=== PATIENT | female | born 1960 | race Caucasian/White ===

== ENCOUNTER 2019-01-24 18:57 | Emergency (ER) | payer MEDICAID ==
[~2019-01-24] VITALS: Ht 160 cm; Wt 68.0 kg
[2019-01-24 19:05] VITALS: Ht 160 cm; Wt 68.0 kg
[2019-01-24 21:03] VITALS: BP 163/109
== END 2019-01-24 21:01 | disposition home or self-care (01) ==
LOC: ED 18:57
DX: S16.1XXA Strain of muscle, fascia and tendon at neck level, initial encounter (principal); S39.012A Strain of muscle, fascia and tendon of lower back, initial encounter; R51 Headache; I10 Essential (primary) hypertension; E03.9 Hypothyroidism, unspecified; Z88.5 Allergy status to narcotic agent; Z98.890 Other specified postprocedural states; V48.5XXA Car driver injured in noncollision transport accident in traffic accident, initial encounter; Y93.I9 Activity, other involving external motion; Y92.488 Other paved roadways as the place of occurrence of the external cause; Y99.8 Other external cause status
CPT/HCPCS: J1885

== ENCOUNTER 2020-12-02 09:49 | Emergency (ER) | payer MEDICAID ==
[~2020-12-02] VITALS: Ht 160 cm; Wt 68.0 kg
[2020-12-02 10:02] VITALS: Ht 160 cm; Wt 68.0 kg
[2020-12-02 11:18] LABS: microscopic required? YES; urine erythrocyte TRACE (NEGATIVE)
[2020-12-02 11:26] VITALS: BP 131/72
[2020-12-03] MEDS ORDERED: SYN15 (23:20)
== END 2020-12-02 11:27 | disposition home or self-care (01) ==
LOC: ED 09:49
PROVIDERS: Specialist
DX: N39.0 Urinary tract infection, site not specified (principal); I10 Essential (primary) hypertension; E03.9 Hypothyroidism, unspecified; F17.210 Nicotine dependence, cigarettes, uncomplicated; Z90.89 Acquired absence of other organs; Z88.5 Allergy status to narcotic agent